=== PATIENT | female | born 1995 | race Asian ===

== ENCOUNTER 2016-09-17 09:28 | Inpatient (IN) | payer OTHER ==
[~2016-09-17] VITALS: Ht 160 cm; Wt 90.0 kg
[~2016-09-17 09:28] MED LIST: PRENAT PO
[2016-09-17 09:46] VITALS: Ht 160 cm; Wt 90.0 kg
[2016-09-17 09:47] VITALS: BP 121/70; PULSE 79; RESP 18
--- NOTE | 2016-09-17 09:59 | TRIAGE ---
OB Triage Datetime Report Generated by CPN: 09/17/2016 09:59 Datetime: 09/17/2016 09:49 Vaginal Exam Dilatation (cms): 3.0 Effacement (%): 60 Station: -2 Exam By: STORM Vaginal Bleeding: None Cervix, Consistency: Moderate Cervix, Position: Anterior Datetime: 09/17/2016 09:45 Assessment Type: Triage Maternal Assessment Level of Consciousness: Fully Conscious DTR's/Clonus: DTRs 1+; No Clonus Headache: Denies Blurred Vision: No Respiratory Effort: Unlabored Breath Sounds, Left: Clear and Equal Breath Sounds, Right: Clear and Equal Nausea/Vomiting: Denies RUQ Epigastric Pain: Denies Lower Extremities Edema: None Degree: None Upper Extremities Edema: None Degree: None Facial Edema: None Fall Risk Assessment History of Falling: (0) No Secondary Diagnosis: (0) No Ambulatory Aid: (0) Bedrest/Nurse Assist IV Therapy: (0) No Gait: (0) Normal/Bedrest/Immobile Mental Status: (0) Oriented to Own Ability Fall Score: 0 Fall Risk Score Definition: No Risk: No action required Datetime: 09/17/2016 09:44 Time of Arrival: 09/17/2016 09:20 EGA: 39.6 Arrived By: Ambulatory Arrived From: Home Chief Complaint: c/o UC'S SINCE Movement: Present Contractions: Irregular Time Contractions Began: 09/17/2016 00:00 Rupture of Membranes: Denies Vaginal Bleeding: None Vaginal Discharge: Denies Recent Sexual Intercouse: Denies Abdominal Trauma: Not Applicable Patient Complaints: Contractions; Cramping; Back Pain Time Provider Notified: 09/17/2016 09:55 Provider Notified: FRANCIS Initial Plan: SVE, EFM Datetime: 06/13/2016 22:15 Stage of : OB Triage Labor Evaluation Frequency: 2-20 Monitor Mode: External Duration (sec)2399: 40-80 Quality: Mild Resting Tone [place]: Relaxed Heart Rate FHR Baseline Rate: 140 Monitor Mode: External US FHR Baseline Changes: No Baseline Change Variability: Moderate 6-25 bpm Accelerations: 10X10 Decelerations: Variable Comments: Appropriate for ga Datetime: 06/13/2016 21:06 Stage of : OB Triage Datetime: 06/13/2016 20:59 Stage of : OB Triage Labor Evaluation Frequency: x2 Monitor Mode: External Duration (sec)2399: 40 Quality: Mild Resting Tone [place]: Relaxed Heart Rate FHR Baseline Rate: 140 Monitor Mode: External US FHR Baseline Changes: No Baseline Change Variability: Moderate 6-25 bpm Accelerations: 15X15 Decelerations: Variable Comments: Appropriate for ga Datetime: 06/13/2016 20:00 Stage of : OB Triage Datetime: 06/13/2016 19:59 Stage of : OB Triage Labor Evaluation Frequency: x3 Monitor Mode: External Duration (sec)2399: 40-50 Quality: Mild Resting Tone [place]: Relaxed Heart Rate FHR Baseline Rate: 140 Monitor Mode: External US Variability: Moderate 6-25 bpm Accelerations: 10X10 Decelerations: Variable Comments: Appropriate for ga Datetime: 06/13/2016 19:38 Assessment Type: Triage Maternal Assessment Level of Consciousness: Fully Conscious DTR's/Clonus: DTRs 1+; No Clonus Headache: Denies Blurred Vision: No Respiratory Effort: Unlabored Breath Sounds, Left: Clear and Equal Breath Sounds, Right: Clear and Equal Nausea/Vomiting: Denies RUQ Epigastric Pain: Denies Lower Extremities Edema: None Degree: None Upper Extremities Edema: None Degree: None Facial Edema: None Fall Risk Assessment History of Falling: (0) No Secondary Diagnosis: (0) No Ambulatory Aid: (0) Bedrest/Nurse Assist IV Therapy: (0) No Gait: (0) Normal/Bedrest/Immobile Mental Status: (0) Oriented to Own Ability Fall Score: 0 Fall Risk Score Definition: No Risk: No action required Datetime: 06/13/2016 19:36 Time of Arrival: 06/13/2016 19:11 EGA: 26.1 Arrived By: Ambulatory Arrived From: Home Chief Complaint: constant r sided low abd pain since yesterday Movement: Present Contractions: Denies/Absent Rupture of Membranes: Denies Vaginal Bleeding: None Vaginal Discharge: Denies Recent Sexual Intercouse: Denies Abdominal Trauma: Not Applicable Patient Complaints: Other Time Provider Notified: 06/13/2016 20:00 Provider Notified: FRANCIS Initial Plan: VS, .EFM, CBC, UA, CL Datetime: 06/13/2016 19:32 Stage of : OB Triage Datetime: 06/13/2016 19:27 Stage of : OB Triage
[2016-09-17] MEDS ORDERED: LIDOCAINE 1% (MPF) 30 ML INJ INJ PRN (10:30)
[2016-09-17] MEDS ORDERED: OXYTOCIN 30 UNITS/LR 500 ML IV PRN ×2 (10:30→19:00)
[2016-09-17] MEDS ORDERED: IBUPROFEN 600 MG TAB PO PRN (10:30)
[2016-09-17] MEDS ORDERED: CARBOPROST 250 MCG INJ IM PRN ×2 (10:30→19:00)
[2016-09-17] MEDS ORDERED: MISOPROSTOL 200 MCG TAB PR PRN ×2 (10:30→19:00)
[2016-09-17] MEDS ORDERED: BUTORPHANOL 2 MG INJ IV PRN (10:30)
[2016-09-17] MEDS ORDERED: LACTATED RINGER'S 1,000 ML IV PRN (10:30)
[2016-09-17] MEDS ORDERED: OXYTOCIN 30 UNITS/LR 500 ML IV SCH ×3 (10:30)
[2016-09-17] MEDS ORDERED: METHYLERGONOVINE 0.2 MG INJ IM PRN ×2 (10:30→19:00)
[2016-09-17] MEDS: LACTATED RINGER'S 1,000 ML IV SCH ×2 (10:50→17:42)
[2016-09-17 11:19] LABS: BASOPHILS % 0.4 % (0.0-2.0); EOSINOPHILS % 0.2 % (0.0-7.0); HEMATOCRIT 38.1 % (37.0-47.0); LYMPHOCYTES # 1.7 10^3/ul (0.8-2.9); LYMPHOCYTES % 12.3 % (18.0-55.0); MEAN CORPUSCULAR HEMOGLOBIN 29.5 pg (29.0-33.0); MEAN CORPUSCULAR HGB CONC 34.2 g/dl (32.0-37.0); MEAN CORPUSCULAR VOLUME 86.3 fl (72.0-104.0); MEAN PLATELET VOLUME 8.7 fl (7.4-10.4); MONOCYTE # 0.6 10^3/ul (0.3-0.9); MONOCYTES % 4.3 % (0.0-13.0); NEUTROPHIL # 11.4 10^3/ul (1.6-7.5); NEUTROPHILS % 82.8 % (30.0-74.0); PLATELET COUNT 258 10^3/UL (140-440); RED BLOOD COUNT 4.41 10^6/ul (4.20-5.40); RED CELL DISTRIBUTION WIDTH 15.4 % (11.5-14.5); UNCORRECTED WBC 13.8 10^3/ul (4.8-10.8); WHITE BLOOD COUNT 13.8 10^3/ul (4.8-10.8)
[2016-09-17 11:20] LABS: CONDITION 1; LH ANALYZER COMMENTS 1
[2016-09-17 11:33] LABS: INR 0.9; PROTIME 12.1 Sec (12.2-14.2); PT RATIO 0.9
[2016-09-17 11:34] LABS: PARTIAL THROMBOPLASTIN TIME 32.6 Sec (25.0-35.0)
[2016-09-17] MEDS ORDERED: FENTAnyl 2MCG/ML-ROPIV 0.2% 100 ML ONE (12:16)
[2016-09-17] MEDS ORDERED: FENTAnyl 50 MCG/ML VIAL ONE ×2 (12:17→18:58)
[2016-09-17] MEDS ORDERED: TERBUTALINE 1 ML ONE (13:36)
[2016-09-17] MEDS ORDERED: NALOXONE (0.4 MG/ML) INJ IV PRN ×2 (16:30→20:00)
[2016-09-17] MEDS ORDERED: FENTAnyl 2MCG/ML-ROPIV 0.2% 100 ML BAG EPI SCH (16:30)
[2016-09-17] MEDS ORDERED: LACTATED RINGER'S 1,000 ML IV SCH (18:50)
[2016-09-17] MEDS ORDERED: CEFAZOLIN 2 GM/50 ML (PMX) 50 ML IVPB ONE (18:55)
[2016-09-17] MEDS ORDERED: LIDOCAINE 2%/EPI 30 ML INJ ONE (18:58)
[2016-09-17] MEDS ORDERED: CEFAZOLIN 2 GM/50 ML (PMX) 50 ML IV SCH (19:00)
[2016-09-17] MEDS ORDERED: DIPHENHYDRAMINE 50 MG INJ IV PRN (20:00)
[2016-09-17] MEDS ORDERED: ZOLPIDEM 5 MG TAB PO PRN (20:00)
[2016-09-17] MEDS ORDERED: ONDANSETRON 4 MG INJ IV PRN (20:00)
[2016-09-17] MEDS ORDERED: HYDROmorphONE 1 MG/ML SYG IV PRN ×2 (20:00)
[2016-09-17] MEDS: OXYTOCIN 30 UNITS/LR 500 ML IV SCH (20:26)
--- NOTE | 2016-09-17 20:59 | PREOPHP ---
DATE OF ADMISSION: 09/17/2016 HISTORY OF PRESENT ILLNESS: This patient is a 21-year-old ,primigravida, with due date of 09/20/2016, who was admitted in the hospital in early labor. She gradually made progress to 3 cm around 2:00 in the afternoon and she was about 3 cm . her amniotic membrane was slightly meconium stained Pitocin was started. She made progress to 4 cm; however, she had repeated decelerations of the heart and nonreassuring heart rate tracing, which became worse about an hour ago. For this reason, a decision was made to go ahead and deliver the baby abdominally. PAST MEDICAL HISTORY: Her course was fairly uneventful. Her lab tests were basically normal. Her Rh was positive. Negative for beta strep culture. GC and chlamydia both were negative. H and H were within normal range. Hemoglobin of 12.4, hematocrit 37.6. Hepatitis B surface antigen negative. Chlamydia and gonorrhea both were negative. Urine culture was negative. Drug screening was negative. Rubella, she was immune. Blood type was, as I mentioned, O Rh positive; however , it was once reported as Rh negative; however, the final results was O Rh positive. PHYSICAL EXAMINATION: EARS, NOSE, AND THROAT: Appear to be normal. NECK: Normal. No neck vein distention, no thyromegaly. LYMPHATICS: No lymph node enlargement anywhere in her body. LUNGS: Clear to auscultation and percussion. HEART: Normal sinus rhythm. No murmur. BREASTS: Soft and nipples were intact. ABDOMEN: Soft. Fundus measures about 38 cm. Baby was in vertex presentation. heart tone, as I mentioned, had several episodes of deceleration. PELVIC: The last time her cervix was about 3 to 4 cm, 70% to 80%, head at -2 station. EXTREMITIES: Normal. Knee jerk reflexes are normal. No edema. IMPRESSION: Intrauterine at term and in active labor and nonreassuring heart rate tracing. PLAN: This patient will undergo primary . The and the chance of complications, chance of need for blood transfusion, and the need for future in case of future were explained to her. She understands all of those and will undergo this procedure. Dictated By: JADYN BENSON MD HF/NTS Conf#: [id number] DID#: [id number] CC: DIONY BLANCO MD;*EndCC* MTDD
[2016-09-17] MEDS: KETOROLAC 30 MG INJ IV PRN (21:55)
--- NOTE | 2016-09-17 22:07 | OPR ---
DATE OF OPERATION: 09/17/2016 PREOPERATIVE DIAGNOSES: 1. Intrauterine at term. 2. Nonreassuring heart rate tracing. POSTOPERATIVE DIAGNOSES: 1. Intrauterine at term. 2. Nonreassuring heart rate tracing. 3. Also, tight nuchal and body cord. DESCRIPTION OF PROCEDURE: Under satisfactory spinal anesthesia, the patient was placed in supine po sition. Bernard catheter was in place. Abdominal area was prepped and the patient was draped. A Pfa nnenstiel type incision was made over the lower portion of the abdomen. This incision was carried t hrough the subcutaneous fatty tissue and the fascia was opened transversely, then the baby was deliv ered without much difficulty. However, the use of vacuum was necessary at one time to assist delive ry of the head of the baby. There were at least 3 loops of cord around the neck and body, which wer e lysed. The cord was cut and clamped and the was handed to the nursery personnel. Blood w as collected from the umbilical cord. Then, the placenta was delivered and sent for pathology exam. The uterus then was exteriorized. Endometrial cavity was cleaned from the debris and blood clot. The uterine incision was closed with chromic catgut #1 in a running and locking manner in 2 differe nt layers. Then, irrigation of the peritoneal cavity was performed. Sponge count and instrument co unt was declared correct. Then, the uterus was placed back inside the peritoneal cavity. The perit oneum was brought together with 2-0 chromic catgut and chromic catgut #1 was used to close the fasci a in a running manner locking every third suture. Subcutaneous fatty tissue was irrigated and then they were approximated with 2-0 chromic catgut. The skin was closed with zane. Estimated blood loss was around 600 mL. She tolerated the procedure and was transferred to the recovery room in a s table condition. The was male with score of 8 in 1 minute, 9 in 5 minutes, and the we ight of the baby was 6 pounds 8 ounces, 2996 grams. Dictated By: JADYN BENSON MD HF/NTS Conf#: [id number] DID#: [id number] CC: DIONY BLANCO MD;*End*
[2016-09-17 22:30] VITALS: BP 150/89; PULSE 95; RESP 20
[2016-09-17 23:00] VITALS: BP 125/70; PULSE 103; RESP 18
[2016-09-18] VITALS (8 sets, daily range): BP systolic 105–138; BP diastolic 53–75; PULSE 81–130; RESP 18–20
[2016-09-18] MEDS: OXYTOCIN 30 UNITS/LR 500 ML IV SCH ×3 (00:43→05:16)
[2016-09-18] MEDS: LACTATED RINGER'S 1,000 ML IV SCH ×3 (00:46→16:57)
[2016-09-18] MEDS ORDERED: LACTATED RINGER'S 1,000 ML IV SCH (00:46)
[2016-09-18] MEDS ORDERED: MISOPROSTOL 200 MCG TAB PR PRN ×2 (01:00)
[2016-09-18] MEDS ORDERED: METHYLERGONOVINE 0.2 MG INJ IM PRN ×2 (01:00)
[2016-09-18] MEDS ORDERED: IBUPROFEN 600 MG TAB PO PRN (01:00)
[2016-09-18] MEDS ORDERED: NA PHOSPHATE/BIPHOS 133 ML ENEMA PR PRN (01:00)
[2016-09-18] MEDS ORDERED: OXYTOCIN 30 UNITS/LR 500 ML IV PRN ×2 (01:00)
[2016-09-18] MEDS ORDERED: METHYLERGONOVINE 0.2 MG TAB PO PRN (01:00)
[2016-09-18] MEDS ORDERED: CARBOPROST 250 MCG INJ IM PRN ×2 (01:00)
[2016-09-18] MEDS ORDERED: ACETAMINOPHEN 500 MG TAB PO PRN ×2 (01:00)
[2016-09-18 08:39] LABS: BASOPHILS % 0.1 % (0.0-2.0); HEMATOCRIT 30.7 % (37.0-47.0); HEMOGLOBIN 10.6 g/dl (12.0-16.0); LYMPHOCYTES # 0.9 10^3/ul (0.8-2.9); LYMPHOCYTES % 6.9 % (18.0-55.0); MEAN CORPUSCULAR HEMOGLOBIN 29.8 pg (29.0-33.0); MEAN CORPUSCULAR HGB CONC 34.3 g/dl (32.0-37.0); MEAN CORPUSCULAR VOLUME 86.9 fl (72.0-104.0); MEAN PLATELET VOLUME 8.8 fl (7.4-10.4); MONOCYTE # 0.6 10^3/ul (0.3-0.9); MONOCYTES % 4.4 % (0.0-13.0); NEUTROPHILS % 88.6 % (30.0-74.0); PLATELET COUNT 199 10^3/UL (140-440); RED BLOOD COUNT 3.54 10^6/ul (4.20-5.40); RED CELL DISTRIBUTION WIDTH 15.9 % (11.5-14.5); UNCORRECTED WBC 13.6 10^3/ul (4.8-10.8); WHITE BLOOD COUNT 13.6 10^3/ul (4.8-10.8)
[2016-09-18 08:42] LABS: CONDITION 1; LH ANALYZER COMMENTS 1
[2016-09-18] MEDS: MULTIVIT/MIN/FOLATE/IRON/PREN TAB PO SCH (08:55)
[2016-09-18] MEDS: KETOROLAC 30 MG INJ IV PRN ×2 (08:55→15:27)
[2016-09-18] MEDS ORDERED: ACETAMINOPHEN 325 MG TAB PO PRN (11:30)
[2016-09-18 12:33] LABS: RUBELLA ANTIBODY - IGG 2.58
--- NOTE | 2016-09-18 13:13 | PN ---
Date/Time of Note Date/Time of Note DATE: 09/18/16 TIME: 13:08 OB Subjective Subjective Subjective Denies any chills or subjective fever. pumping her breasts. Tolerated regular diet and passed flatus. Ambulating. vaginal bleeding in the amount of menses. OB Objective Objective Objective GA: A&O, NAD Abdomen: Soft., appropriate tenderness over the section incision. Normal bowel sounds audible Lungs; CTA bilaterally CV: RRR Extremities: no calf tenderness, no click, no edema Hematology - 72 Hrs Test 09/17/16 10:45 09/18/16 06:50 Basophils # 0.010^3/ul (0.0-0.1) 0.010^3/ul (0.0-0.1) Basophils % 0.4% (0.0-2.0) 0.1% (0.0-2.0) Blood Morphology Comment Eosinophils # 0.010^3/ul (0.0-0.5) 0.010^3/ul (0.0-0.5) Eosinophils % 0.2% (0.0-7.0) 0.0% (0.0-7.0) Hematocrit 38.1% (37.0-47.0) 30.7% (37.0-47.0) L Hemoglobin 13.0g/dl (12.0-16.0) 10.6g/dl (12.0-16.0) L Lymphocytes # 1.710^3/ul (0.8-2.9) 0.910^3/ul (0.8-2.9) Lymphocytes % 12.3% (18.0-55.0) L 6.9% (18.0-55.0) L Mean Corpuscular Hemoglobin 29.5pg (29.0-33.0) 29.8pg (29.0-33.0) Mean Corpuscular Hemoglobin Concent 34.2g/dl (32.0-37.0) 34.3g/dl (32.0-37.0) Mean Corpuscular Volume 86.3fl (72.0-104.0) 86.9fl (72.0-104.0) Mean Platelet Volume 8.7fl (7.4-10.4) 8.8fl (7.4-10.4) Monocytes # 0.610^3/ul (0.3-0.9) 0.610^3/ul (0.3-0.9) Monocytes % 4.3% (0.0-13.0) 4.4% (0.0-13.0) Neutrophils # 11.410^3/ul (1.6-7.5) H 12.010^3/ul (1.6-7.5) H Neutrophils % 82.8% (30.0-74.0) H 88.6% (30.0-74.0) H Nucleated Red Blood Cells # 0.010^3/ul (0.0-0.0) 0.010^3/ul (0.0-0.0) Nucleated Red Blood Cells % 0.0/100WBC (0.0-0.0) 0.0/100WBC (0.0-0.0) Platelet Count 62223^3/UL (140-440) # 36949^3/UL (140-440) # Red Blood Count 4.4110^6/ul (4.20-5.40) 3.5410^6/ul (4.20-5.40) L Red Cell Distribution Width 15.4% (11.5-14.5) H 15.9% (11.5-14.5) H White Blood Count 13.810^3/ul (4.8-10.8) #H 13.610^3/ul (4.8-10.8) H OB Assessment/Plan Other Assessment: POD #1 S/p section, Post / post op section fever 101, in first 24 hour after delivery. will continue to watch closely. likely related to medication ( Toradol) WBC mildly elevated. CBC am Watch closely Plan: Expectant Management DAMARIS ADLER MD Sep 18, 2016 13:13
[2016-09-18] MEDS ORDERED: OXYCODONE/ACETAMINOPHEN (5/325) TAB PO PRN (19:35)
[2016-09-18] MEDS: OXYCODONE/ACETAMINOPHEN (5/325) TAB PO PRN (22:39)
[2016-09-19] MEDS: LACTATED RINGER'S 1,000 ML IV SCH ×3 (00:46→16:46)
[2016-09-19 04:00] VITALS: BP 119/59; PULSE 99; RESP 18
[2016-09-19] MEDS: OXYCODONE/ACETAMINOPHEN (5/325) TAB PO PRN (05:16)
[2016-09-19 06:58] LABS: BASOPHILS % 0.2 % (0.0-2.0); EOSINOPHILS % 0.1 % (0.0-7.0); HEMATOCRIT 28.2 % (37.0-47.0); HEMOGLOBIN 9.6 g/dl (12.0-16.0); LYMPHOCYTES # 1.5 10^3/ul (0.8-2.9); LYMPHOCYTES % 12.9 % (18.0-55.0); MEAN CORPUSCULAR HEMOGLOBIN 29.6 pg (29.0-33.0); MEAN CORPUSCULAR HGB CONC 34.1 g/dl (32.0-37.0); MEAN CORPUSCULAR VOLUME 86.7 fl (72.0-104.0); MEAN PLATELET VOLUME 7.9 fl (7.4-10.4); MONOCYTE # 0.7 10^3/ul (0.3-0.9); MONOCYTES % 5.6 % (0.0-13.0); NEUTROPHIL # 9.6 10^3/ul (1.6-7.5); NEUTROPHILS % 81.2 % (30.0-74.0); PLATELET COUNT 203 10^3/UL (140-440); RED BLOOD COUNT 3.26 10^6/ul (4.20-5.40); RED CELL DISTRIBUTION WIDTH 15.8 % (11.5-14.5); UNCORRECTED WBC 11.9 10^3/ul (4.8-10.8); WHITE BLOOD COUNT 11.9 10^3/ul (4.8-10.8)
[2016-09-19 07:15] LABS: CONDITION 1; LH ANALYZER COMMENTS 1
[2016-09-19 08:57] VITALS: BP 108/71; PULSE 85; RESP 17
[2016-09-19] MEDS: MULTIVIT/MIN/FOLATE/IRON/PREN TAB PO SCH (09:40)
[2016-09-19] MEDS ORDERED: INFLUENZA VIRUS VACCINE 0.5 ML SYG IM* ONE (10:00)
[2016-09-19] MEDS: IBUPROFEN 600 MG TAB PO PRN ×3 (11:15→23:58)
[2016-09-19] MEDS: LANOLIN 7 GM TUBE TOP PRN (11:16)
[2016-09-19 15:59] VITALS: BP 114/73; PULSE 80; RESP 18
[2016-09-19 20:05] VITALS: BP 111/71; PULSE 82; RESP 17
[2016-09-20 04:00] VITALS: BP 121/78; PULSE 88; RESP 17
--- NOTE | 2016-09-20 07:47 | DS ---
Date/Time of Note Date/Time of Note DATE: 09/20/16 TIME: 07:46 Discharge Summary Admission/Discharge Info Admit Date/Time Sep 17, 2016 at 10:04 Discharge Date/Time Final Diagnosis term preg, c/s for declerations Patient Condition: Stable Hospital Course unremarkable Home Meds Reported Medications Multivit/Min/Fol Ac/Iron/Pren* ( S*) 1 Tab Tab, 1 TAB PO DAILY, TAB 06/13/16 DIONY BLANCO MD Sep 20, 2016 07:47
--- NOTE | 2016-09-20 07:48 | QN ---
Documentation Comment doing well vss cpm DIONY BLANCO MD Sep 20, 2016 07:48
[2016-09-20 07:50] VITALS: BP 112/73; PULSE 69; RESP 16
[2016-09-20] MEDS ORDERED: DIPHTH/TET/ACEL PERTUSS (ADULT) 0.5 ML VIAL IM* ONE (09:00)
[2016-09-20] MEDS: MULTIVIT/MIN/FOLATE/IRON/PREN TAB PO SCH (09:43)
[2016-09-20] MEDS: IBUPROFEN 600 MG TAB PO PRN ×2 (11:23→17:19)
[2016-09-20 15:30] VITALS: BP 116/78; PULSE 85; RESP 16
[2016-09-20] MEDS: LANOLIN 7 GM TUBE TOP PRN (17:30)
== END 2016-09-20 18:03 | disposition home or self-care (01) | DRG 766 ==
LOC: L-D 09:28 → OBT 09:28 → L-D 10:04 → PP1 22:40
PROVIDERS: ADMIT Obstetrics & Gynecology; ATTEND Obstetrics & Gynecology
PROC: 10D00Z1 Extraction of Products of Conception, Low, Open Approach (ICD-10-PCS; principal; 2016-09-17 19:00)
PROC: 3E00X4Z Introduction of Serum, Toxoid and Vaccine into Skin and Mucous Membranes, External Approach (ICD-10-PCS; 2016-09-19)
DX: O76 Abnormality in fetal heart rate and rhythm complicating labor and delivery (principal); O69.81X0 Labor and delivery complicated by cord around neck, without compression, not applicable or unspecified; Z23 Encounter for immunization; Z3A.37 37 weeks gestation of pregnancy; Z37.0 Single live birth
CPT/HCPCS: 62319; 85025; 85610; 85730; 86592; 86762; 86885; 86900; 86901; 87340; 90686; 90715; 99464; G0463; J0690; J1170; J1885; J2590; J3010; J3105; J7120